=== PATIENT | female | born 1980 | race Caucasian/White ===

== ENCOUNTER 2020-10-29 17:54 | Emergency (ER) | payer OTHER ==
[2020-10-29 18:37] LABS: EOS # 0.3 (0.04-0.40); EOS % 3.1 % (1.0-5.0); HEMATOCRIT 39.7 % (37.0-47.0); HEMOGLOBIN 12.6 g/dL (12.5-16.0); LYMPH# 2.9 (1.50-4.00); MEAN CELL VOLUME 87 fl (78-100); MEAN CORPUSCULAR HEMOGLOBIN 28 pg (27-31); MEAN CORPUSCULAR HGB CONC 32 g/dL (33-37); MEAN PLATELET VOLUME 10.2 fl (7.4-10.4); MONO # 0.6 (0.20-0.80); NEU # 4.6 (1.40-6.50); PLATELET COUNT 371 K/mm3 (130-400); RED BLOOD COUNT 4.57 M/mm3 (4.10-5.30); RED CELL DISTRIBUTION WIDTH 13.5 % (11.5-14.5); WHITE BLOOD COUNT 8.3 K/mm3 (4.8-10.8)
[2020-10-29] MEDS ORDERED: ZYRTEC10 M3 PO (18:50)
[2020-10-29] MEDS ORDERED: SYNTHROID RP0.1 MG PO (18:50)
[2020-10-29] MEDS ORDERED: PROAIR HFA0.09 MG/AC IH (18:50)
[2020-10-29 18:51] LABS: SODIUM 141 mmol/L (136-145)
[2020-10-29] MEDS ORDERED: VYVANSE40 MG PO (18:51)
[2020-10-29] MEDS ORDERED: LEXAPRO20 M1 PO (18:51)
[2020-10-29] MEDS ORDERED: VITAMIN D-40010 MCG PO (18:51)
[2020-10-29 18:52] LABS: CALCIUM 9.3 mg/dL (8.3-10.5); GLUCOSE 69 mg/dL (65-105)
[2020-10-29] MEDS ORDERED: B-121000 MCG PO (18:52)
[2020-10-29 18:54] LABS: CARBON DIOXIDE 24 mmol/L (22-29)
[2020-10-29 19:06] LABS: TROPONIN-I < 0.03 ng/mL (<0.030)
[2020-10-29] MEDS ORDERED: PREDNISONE20 M1 PO ×2 (20:10→20:11)
[2020-10-29 20:20] VITALS: BP 128/88
== END 2020-10-29 20:21 | disposition home or self-care (01) ==
LOC: ED 17:54
PROVIDERS: Family Medicine
DX: J45.909 Unspecified asthma, uncomplicated (principal); F41.9 Anxiety disorder, unspecified; E66.01 Morbid (severe) obesity due to excess calories; Z68.41 Body mass index [BMI] 40.0-44.9, adult; Z20.822 Contact with and (suspected) exposure to COVID-19